=== PATIENT | male | born 1980 | race Caucasian/White ===

== ENCOUNTER 2016-06-17 01:53 | Emergency (ER) | payer OTHER ==
[~2016-06-17] VITALS: Ht 167.6 cm; Wt 76.6 kg
[2016-06-17] MEDS ORDERED: ULTRACET1 TABLET PO (03:27)
[2016-06-17 03:41] VITALS: BP 125/67
== END 2016-06-17 03:45 | disposition home or self-care (01) ==
LOC: EME 01:53
DX: S43.402A Unspecified sprain of left shoulder joint, initial encounter (principal); X58.XXXA Exposure to other specified factors, initial encounter
CPT/HCPCS: 73030; 99281; 99283